=== PATIENT | female | born 2005 | race Two or more races ===

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

== ENCOUNTER 2024-05-11 03:47 | Inpatient (IN) | payer MEDICAID ==
[2024-05-11] VITALS (7 sets, daily range): BP systolic 98–121; BP diastolic 45–67; PULSE 57–101; RESP 16–26; TEMP 98–98.7; O2SAT 95–100
[~2024-05-11] VITALS: Ht 149.9 cm; Wt 62.4 kg
[2024-05-11 05:08] LABS: Basophils # (auto) 0.1 10 ^3/uL (0-0.2); Eosinophils # (auto) 0.1 10 ^3/uL (0-0.8); Hematocrit 37.8 % (36.0-46.0); Hemoglobin 12.3 g/dL (12.2-16.2); Lymphocytes # (auto) 1.5 10 ^3/uL (0.4-5.4); Mean Corpuscular Hgb Conc. 32.6 g/dL (32.0-36.0); Neutrophils # (auto) 12.9 10 ^3/uL (1.6-8.6); Nucleated Red Blood Cells % 0.1 %; White Blood Cell 15.2 10^3/uL (4.4-10.8)
[2024-05-11 05:10] LABS: Basophils % (auto) 0.6 % (0.0-2.0); Eosinophils % (auto) 0.5 % (0.0-7.0); Lymphocytes % (auto) 9.8 % (10.0-50.0); Mean Corpuscular Hemoglobin 25.2 pg (28.0-32.0); Mean Corpuscular Volume 77.2 fL (80.0-100.0); Monocytes # (auto) 0.7 10 ^3/uL (0-1.3); Monocytes % (auto) 4.3 % (0.0-12.0); Neutrophils % (auto) 84.8 % (37.0-80.0); Platelet Count (auto) 410 10^3/uL (140-450); Red Cell Distribution Width 15.5 % (11.8-14.3)
[2024-05-11 05:12] LABS: Urine Bacteria None Seen /hpf (None Seen)
[2024-05-11 05:21] LABS: Urine Blood 2+ /uL (Negative); Urine Clarity Clear (Clear); Urine Color Light-Yellow (Yellow); Urine Mucus FEW (None Seen); Urine Protein, UAD TRACE (Negative); Urine Specific Gravity 1.025 (1.001-1.035); Urine Urobilinogen Normal (Negative); Urine WBC 8 /hpf (0 - 5)
[2024-05-11 05:25] LABS: Alanine Aminotransferase 24 U/L (7-40); Albumin 5.1 g/dL (3.2-4.8); Alkaline Phosphatase 90 U/L (46-116); Anion Gap 8 (5-15); Aspartate Aminotransferase 17 U/L (13-40); BUN/Creatinine Ratio 18.8 (10.0-20.0); Blood Urea Nitrogen 13 mg/dL (9-23); Calcium 10.2 mg/dL (8.7-10.4); Carbon Dioxide 26 mmol/L (20-30); Chloride 104 mmol/L (98-107); Glucose 113 mg/dL (74-106); Potassium 3.8 mmol/L (3.5-5.1); Sodium 138 mmol/L (136-145)
[2024-05-11 05:26] LABS: Bilirubin, Total 0.3 mg/dL (0.2-1.0); Total Protein 8.5 g/dL (5.7-8.2)
[2024-05-11] MEDS: ONDANSETRON HCL 4 MG/2 ML VIAL IV ONE ×2 (06:13→06:15)
[2024-05-11] MEDS: SODIUM CHLORIDE 0.9% 1,000 ML IV ONE ×5 (06:14→09:30)
[2024-05-11] MEDS: MORPHINE SULFATE 4 MG/ML SYR/VIAL IV ONE ×2 (06:14)
[2024-05-11] MEDS ORDERED: metroNIDAZOLE 500MG/100ML 100 ML IV ONE (08:15)
[2024-05-11] MEDS: cefTRIAXone 1GM/50ML D5W 50 ML IV ONE (08:15)
[2024-05-11] MEDS ORDERED: IOHEXOL 300 MG/ML 100ML BOTTLE IJ ONE (08:28)
[2024-05-11] MEDS ORDERED: ONDANSETRON HCL 4 MG/2 ML VIAL IV PRN (09:30)
[2024-05-11] MEDS ORDERED: DOCUSATE SOD 100 MG CAP PO PRN (09:30)
[2024-05-11] MEDS: ENOXAPARIN SOD 40 MG/0.4 ML SYRINGE SC SCH (10:00)
[2024-05-11] MEDS: PIPERACILLIN-TAZOB 3.375GM 100 ML IV SCH (13:23)
[2024-05-11] MEDS: PANTOPRAZOLE 40 MG/10 ML VIAL INJ IV SCH (13:23)
[2024-05-11] MEDS: SODIUM CHLOR 0.9% PF (SALINE LOCK) 10ML VIAL/SYR IV SCH (13:28)
[2024-05-11] MEDS: ACETAMINOPHEN 325 MG TAB PO PRN (20:07)
[2024-05-12] VITALS (7 sets, daily range): BP systolic 95–127; BP diastolic 47–67; PULSE 62–87; RESP 16–20; TEMP 97.6–98.8; O2SAT 98–100
[2024-05-12 15:29] LABS: Basophils # (auto) 0.1 10 ^3/uL (0-0.2); Eosinophils # (auto) 0.3 10 ^3/uL (0-0.8); Hemoglobin 11.8 g/dL (12.2-16.2); Lymphocytes # (auto) 2.6 10 ^3/uL (0.4-5.4); Red Cell Distribution Width 15.4 % (11.8-14.3); White Blood Cell 7.2 10^3/uL (4.4-10.8)
[2024-05-12 15:31] LABS: Eosinophils % (auto) 4.7 % (0.0-7.0); Hematocrit 36.2 % (36.0-46.0); Mean Corpuscular Hemoglobin 25.3 pg (28.0-32.0); Mean Corpuscular Hgb Conc. 32.6 g/dL (32.0-36.0); Mean Corpuscular Volume 77.6 fL (80.0-100.0); Monocytes # (auto) 0.6 10 ^3/uL (0-1.3); Monocytes % (auto) 8.4 % (0.0-12.0); Neutrophils # (auto) 3.6 10 ^3/uL (1.6-8.6); Neutrophils % (auto) 49.9 % (37.0-80.0); Platelet Count (auto) 367 10^3/uL (140-450); Red Blood Cells 4.67 10^6/uL (4.0-5.20)
[2024-05-12 16:04] LABS: Lipase 38 U/L (12-53)
[2024-05-12 16:05] LABS: Amylase 99 U/L (30-118)
[2024-05-13 01:00] VITALS: BP 120/76; PULSE 63; RESP 16; TEMP 98.1; O2SAT 100
[2024-05-13 05:00] VITALS: BP 99/50; PULSE 84; RESP 18; TEMP 97.8; O2SAT 98
[2024-05-13 08:00] VITALS: PULSE 67; RESP 18; O2SAT 99
[2024-05-13 08:53] VITALS: BP 110/53; PULSE 66; RESP 16; TEMP 98; O2SAT 98
[2024-05-13] MEDS ORDERED: AMOX500T86 PO (11:45)
[2024-05-13] MEDS ORDERED: LEVO500T91 PO (12:34)
[2024-05-13 12:56] VITALS: BP 126/69; PULSE 68; RESP 20; TEMP 98.3
== END 2024-05-13 13:00 | disposition home or self-care (01) | DRG 720 ==
LOC: ER 03:47 → OVERFLOW 09:27 → EAST 11:34
PROVIDERS: ADMIT Internal Medicine; ATTEND Nurse Practitioner Acute Care
DX: A41.9 Sepsis, unspecified organism (principal); K76.0 Fatty (change of) liver, not elsewhere classified; N13.6 Pyonephrosis; E11.65 Type 2 diabetes mellitus with hyperglycemia; I10 Essential (primary) hypertension; K52.9 Noninfective gastroenteritis and colitis, unspecified; E66.3 Overweight; Z88.0 Allergy status to penicillin; Z83.3 Family history of diabetes mellitus; Z68.27 Body mass index [BMI] 27.0-27.9, adult; Z79.899 Other long term (current) drug therapy
CPT/HCPCS: 36415; 76705; 76830; 76856; 80053; 81001; 82150; 83036; 83605; 83690; 84702; 85025; 87040; 99291; G0378; J2405; J2470; J2543

== ENCOUNTER 2024-08-26 23:46 | Emergency (ER) | payer MEDICAID ==
[~2024-08-26] VITALS: Ht 149.9 cm; Wt 64.3 kg
[~2024-08-26 23:46] MED LIST: LEVO500T91 PO
[2024-08-27 00:10] VITALS: BP 111/70; PULSE 78; RESP 18; O2SAT 99
--- NOTE | 2024-08-27 00:21 | ED.PDOC ---
History of Present Illness HPI Comments 19-year-old female with no PMHx presents with a chief complaint of nausea, vomiting, while being currently . Patient states that she is currently 7 weeks . Patient mentions that she has not eaten anything and has been vomiting stomach bile. 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 No complaints of vaginal bleeding, cramping, or abdominal pain. No other symptoms or modifying factors present at this time. Chief Complaint: Nausea/Vomiting Time Seen by MD: 00:15 Reviewed Notes: Medications, Allergies Allergies: Coded Allergies: Amoxicillin (Verified Allergy, Unknown, 05/11/24) Home Meds Active Scripts Levofloxacin Hemihydrate (LEVAQUIN 500 MG) 500 Mg Tab, 1 TAB PO DAILY for 5 Days, #5 TAB Prov:MT ROBB NP 05/13/24 Information Source: Patient Mode of Arrival: Ambulatory Severity: Moderate Timing: Hours Duration: Since onset Prehospital treatment: None Past Medical History PAST MEDICAL HISTORY: Denies Surgical History: Denies all surgeries PROGRAMMING COORDINATOR History: No Pertinent PROGRAMMING COORDINATOR History Family History Family History: Family hx of DM Social History Smoker: Non-Smoker Alcohol: Denies ETOH Use Drugs: Marijuana Lives In: Home Constitutional: denies: chills, diaphoresis, fatigue, fever, malaise, sweats, weakness, others EENTM: denies: blurred vision, double vision, ear bleeding, ear discharge, ear drainage, ear pain, ear ringing, eye pain, eye redness, hearing loss, mouth pain, mouth swelling, nasal discharge, nose bleeding, nose congestion, nose pain, photophobia, tearing, throat pain, throat swelling, voice changes, others Respiratory: denies: cough, hemoptysis, orthopnea, SOB at rest, shortness of breath, SOB with excertion, stridor, wheezing, others Cardiovascular: denies: chest pain, dizzy spells, diaphoresis, Dyspnea on exertion, edema, irregular heart beat, left arm pain, lightheadedness, palpitations, PND, syncope, others Gastrointestinal: reports: nausea, vomiting; denies: abdomen distended, abdominal pain, blood streaked bowels, constipated, diarrhea, dysphagia, difficulty swallowing, hematemesis, melena, poor appetite, poor fluid intake, rectal bleeding, rectal pain, others Genitourinary: reports: ; denies: abnormal vagina bleeding, burning, dyspareunia, dysuria, flank pain, frequency, hematuria, incontinence, pain, vagina discharge, urgency, others Neurological: denies: dizziness, fainting, headache, left sided numbness, left sided weakness, numbness, paresthesia, pre-existing deficit, right sided numbness, right sided weakness, seizure, speech problems, tingling, tremors, weakness, others Musculoskeletal: denies: back pain, gout, joint pain, joint swelling, muscle pain, muscle stiffness, neck pain, others Integumetry: denies: bruises, change in color, change in hair/nails, dryness, laceration, lesions, lumps, rash, wounds, others Allergic/Immunocompromised: denies: Difficulty Healing, Frequent Infections, Hives, Itching, others Hematologic/Lymphatic: denies: anemia, blood clots, easy bleeding, easy bruising, swollen glands, others Endocrine: denies: excessive hunger, excessive sweating, excessive thirst, excessive urination, flushing, intolerance to cold, intolerance to heat, unexplained weight gain, unexplained weight loss, others Psychiatric: denies: anxiety, bipolar disorder, depression, hopeless, panic disorder, schizophrenia, sleepless, suicidal, others All Other Systems: Reviewed and Negative Physical Exam General Appearance: No Apparent Distress, Normal HEENT: Normal ENT Inspection, Pharynx Normal, TMs Normal Neck: Full Range of Motion, Non-Tender, Normal, Normal Inspection Respiratory: Chest Non-Tender, Lungs Clear, No Accessory Muscle Use, No Respiratory Distress, Normal Breath Sounds Cardiovascular: No Edema, No JVD, No Murmur, No Gallop, Normal Peripheral Pulses, Regular Rate/Rhythm Breast Exam: Deferred Gastrointestinal: No Organomegaly, Non Tender, No Pulsatile Mass, Normal Bowel Sounds, Soft, Other (DRY MUCUS MEMBRANES) Genitalia: Deferred Pelvic: Deferred Rectal: Deferred Extremities: No calf tenderness, Normal capillary refill, Normal inspection, Normal range of motion, Non-tender, No pedal edema Musculoskeletal : Apperance: Normal Neurologic: Alert, lotteries agent II-XII nml as Tested, No Motor Deficits, Normal Affect, Normal Mood, No Sensory Deficits Cerebellar Function: Normal Reflexes: Normal Skin: Dry, Normal Color, Warm Lymphatic: No Adenopathy Was a procedure done? Was a procedure done?: No Differential Dx Considerations may include: Viral gastroenteritis, hyperemesis X-Ray, Labs, Meds, VS Vital Signs Date Time Temp Pulse Resp B/P (MAP) Pulse Ox O2 Delivery O2 Flow Rate FiO2 08/27/24 00:10 98.7 78 18 111/70 (84) 99 Lab Test 08/27/24 01:00 Range/Units White Blood Count 12.6 H 4.4-10.8 10^3/uL Red Blood Count 4.71 4.0-5.20 10^6/uL Hemoglobin 12.1 L 12.2-16.2 g/dL Hematocrit 36.8 36.0-46.0 % Mean Corpuscular Volume 78.1 L 80.0-100.0 fL Mean Corpuscular Hemoglobin 25.7 L 28.0-32.0 pg Mean Corpuscular Hemoglobin Concent 32.9 32.0-36.0 g/dL Red Cell Distribution Width 18.3 H 11.8-14.3 % Platelet Count 390 140-450 10^3/uL Mean Platelet Volume 7.5 6.9-10.8 fL Neutrophils (%) (Auto) 60.4 37.0-80.0 % Lymphocytes (%) (Auto) 27.2 10.0-50.0 % Monocytes (%) (Auto) 9.2 0.0-12.0 % Eosinophils (%) (Auto) 2.5 0.0-7.0 % Basophils (%) (Auto) 0.7 0.0-2.0 % Neutrophils # (Auto) 7.6 1.6-8.6 10 ^3/uL Lymphocytes # (Auto) 3.4 0.4-5.4 10 ^3/uL Monocytes # (Auto) 1.2 0-1.3 10 ^3/uL Eosinophils # (Auto) 0.3 0-0.8 10 ^3/uL Basophils # (Auto) 0.1 0-0.2 10 ^3/uL Nucleated Red Blood Cells 0.1 % Sodium Level 137 136-145 mmol/L Potassium Level 3.5 3.5-5.1 mmol/L Chloride Level 100 98-107 mmol/L Carbon Dioxide Level 27 20-31 mmol/L Anion Gap 10 5-15 Blood Urea Nitrogen 10 9-23 mg/dL Creatinine 0.50 L 0.550-1.02 mg/dL Glomerular Filtration Rate Calc 138 >90 mL/min BUN/Creatinine Ratio 20.0 10.0-20.0 Serum Glucose 86 74-106 mg/dL Calcium Level 10.6 H 8.7-10.4 mg/dL Time of 1ST Reevaluation: 00:45 Reevaluation 1ST: Unchanged Patient Education/Counseling: Diagnosis, Treatment, Prognosis Family Education/Counseling: No Family Present Departure 1 Departure Time of Disposition: 02:46 (Patient likely with hyperemesis gravidarum. She is now tolerating p.o. and feeling better. We will discharge patient with outpatient follow up) Impression: Primary Impression: Hyperemesis gravidarum Disposition: 01 HOME / SELF CARE / HOMELESS Condition: Stable Additional Instructions: It is important to follow up with your regular doctor this week. Please stay well hydrated and well rested. Discharged With: Self Critical Care Note Critical Care Time?: No Stability Stability form required: No I personally scribed for ABE HILARIO MD ([email or web address]) on 08/27/24 at 00:21. Electronically submitted by Armaan Hernandez [email or web address]). ABE HILARIO MD Aug 27, 2024 00:21
[2024-08-27] MEDS ORDERED: SODIUM CHLORIDE 0.9% 1,000 ML IV ONE (00:30)
[2024-08-27] MEDS ORDERED: ONDANSETRON HCL 4 MG/2 ML VIAL IV ONE (00:30)
[2024-08-27 01:28] LABS: Basophils # (auto) 0.1 10 ^3/uL (0-0.2); Basophils % (auto) 0.7 % (0.0-2.0); Eosinophils # (auto) 0.3 10 ^3/uL (0-0.8); Eosinophils % (auto) 2.5 % (0.0-7.0); Hematocrit 36.8 % (36.0-46.0); Hemoglobin 12.1 g/dL (12.2-16.2); Lymphocytes # (auto) 3.4 10 ^3/uL (0.4-5.4); Lymphocytes % (auto) 27.2 % (10.0-50.0); Mean Corpuscular Hemoglobin 25.7 pg (28.0-32.0); Mean Corpuscular Hgb Conc. 32.9 g/dL (32.0-36.0); Mean Corpuscular Volume 78.1 fL (80.0-100.0); Monocytes # (auto) 1.2 10 ^3/uL (0-1.3); Monocytes % (auto) 9.2 % (0.0-12.0); Neutrophils # (auto) 7.6 10 ^3/uL (1.6-8.6); Neutrophils % (auto) 60.4 % (37.0-80.0); Nucleated Red Blood Cells % 0.1 %; Platelet Count (auto) 390 10^3/uL (140-450); Red Blood Cells 4.71 10^6/uL (4.0-5.20); Red Cell Distribution Width 18.3 % (11.8-14.3); White Blood Cell 12.6 10^3/uL (4.4-10.8)
[2024-08-27 01:38] LABS: Anion Gap 10 (5-15); Carbon Dioxide 27 mmol/L (20-31); Chloride 100 mmol/L (98-107); Potassium 3.5 mmol/L (3.5-5.1); Sodium 137 mmol/L (136-145)
[2024-08-27 01:44] LABS: Blood Urea Nitrogen 10 mg/dL (9-23); Glucose 86 mg/dL (74-106)
[2024-08-27 01:52] LABS: Calcium 10.6 mg/dL (8.7-10.4)
[2024-08-27 03:30] LABS: Urine Amorphous Crystal FEW /hpf (None Seen); Urine Bacteria FEW /hpf (None Seen); Urine Blood Negative /uL (Negative); Urine Clarity Clear (Clear); Urine Color Light-Yellow (Yellow); Urine Protein, UAD Negative (Negative); Urine Urobilinogen Normal (Negative); Urine WBC 3 /hpf (0 - 5); Urine pH 6.5 (5.0-9.0)
== END 2024-08-27 05:38 | disposition home or self-care (01) ==
LOC: ER 23:46
DX: O21.0 Mild hyperemesis gravidarum (principal); Z3A.01 Less than 8 weeks gestation of pregnancy; Z88.1 Allergy status to other antibiotic agents
CPT/HCPCS: 36415; 80048; 81001; 85025

== ENCOUNTER 2024-10-26 08:09 | Emergency (ER) | payer MEDICAID ==
[~2024-10-26] VITALS: Ht 149.9 cm; Wt 61.8 kg
[2024-10-26 08:43] LABS: Urine Bacteria FEW /hpf (None Seen); Urine Blood Negative /uL (Negative); Urine Clarity Clear (Clear); Urine Color Light-Yellow (Yellow); Urine Protein, UAD Negative (Negative); Urine Specific Gravity 1.007 (1.001-1.035); Urine Squamous Epithelial Cell FEW /hpf (<5); Urine Urobilinogen Normal (Negative); Urine WBC 1 /HPF (0-5)
[2024-10-26] MEDS: ONDANSETRON HCL 4 MG/2 ML VIAL IV ONE (08:45)
[2024-10-26] MEDS: SODIUM CHLORIDE 0.9% 1,000 ML IV ONE ×2 (08:58→10:13)
--- NOTE | 2024-10-26 09:16 | ED.PDOC ---
GI ASSESSMENT HPI Comments A 19 YEAR OLD FEMALE PRESENTS TO THE ED WITH COMPLAINT OF NAUSEA AND VOMITING DURING . PATIENT STATES SHE IS CURRENTLY 16 WEEKS AND HAS BEEN EXPERIENCING NAUSEA, VOMITING, AND LEFT-SIDED LOWER BACK PAIN THAT RADIATES TO HER PELVIC REGION FOR THE PAST 1 WEEK WITH WORSENING SYMPTOMS OVER THE LAST 1 DAY. PT HAS HX OF KIDNEY STONE IN THE PAST. PATIENT DENIES DYSURIA, VAGINAL SPOTTING/BLEEDING, HEMATURIA, VAGINAL DISCHARGE, FEVER, CHILLS, SHORTNESS OF BREATH, CHEST PAIN, HEADACHE, OR OTHER COMPLAINTS. NO OTHER SYMPTOMS OR MODIFYING FACTORS AT THIS TIME. PATIENT IS ALERT, ORIENTED X 4, AND HAS STEADY GAIT. Chief Complaint: Nausea/Vomiting Time Seen by MD: 08:15 Primary Care Provider: UNKNOWN Reviewed Notes: Nurses Notes, Medications, Allergies Allergies: Coded Allergies: Amoxicillin (Verified Allergy, Unknown, 05/11/24) Home Meds Active Scripts Acetaminophen (Tylenol Extra Strength Fo) 500 Mg Tab, 1000 MG PO BID, #30 TAB Prov:PATRICIO TAMAYO 10/26/24 Ondansetron Odt 4MG Tab (ZOFRAN PO) 4 Mg Tb, 4 MG PO BID, #20 TAB ODT TAB-DISSOLVE IN MOUTH, THEN SWALLOW Prov:PATRICIO TAMAYO 10/26/24 Levofloxacin Hemihydrate (LEVAQUIN 500 MG) 500 Mg Tab, 1 TAB PO DAILY for 5 Days, #5 TAB Prov:MT ROBB NP 05/13/24 Information Source: Patient Mode of Arrival: Ambulatory Timing: Days Duration: Since onset, Days Prehospital treatment: None Quality: Aching, Cramping Vomitus: Food Particles Stool: Normal Severity: Moderate Recent: None Recent Hx of: Current Pain Location: LLQ, Suprapubic Modifying Factors: Nothing Associated sign and symptoms: Nausea, Vomiting, Abdominal Pain Past Medical History PAST MEDICAL HISTORY: Kidney Stones Surgical History: Denies all surgeries DESIGN TECHNOLOGY PROFESSOR History: No Pertinent DESIGN TECHNOLOGY PROFESSOR History Family History Family History: Reviewed,noncontributory to illness, Family hx of DM Social History Smoker: Non-Smoker Alcohol: Denies ETOH Use Drugs: Marijuana Lives In: Home Constitutional: denies: chills, diaphoresis, fatigue, fever, malaise, sweats, weakness, others EENTM: denies: blurred vision, double vision, ear bleeding, ear discharge, ear drainage, ear pain, ear ringing, eye pain, eye redness, hearing loss, mouth pain, mouth swelling, nasal discharge, nose bleeding, nose congestion, nose pain, photophobia, tearing, throat pain, throat swelling, voice changes, others Respiratory: denies: cough, hemoptysis, orthopnea, SOB at rest, shortness of breath, SOB with excertion, stridor, wheezing, others Cardiovascular: denies: chest pain, dizzy spells, diaphoresis, Dyspnea on exertion, edema, irregular heart beat, left arm pain, lightheadedness, palpitations, PND, syncope, others Gastrointestinal: reports: nausea, vomiting; denies: abdomen distended, abdominal pain, blood streaked bowels, constipated, diarrhea, dysphagia, difficulty swallowing, hematemesis, melena, poor appetite, poor fluid intake, rectal bleeding, rectal pain, others Genitourinary: reports: ; denies: abnormal vagina bleeding, burning, dyspareunia, dysuria, flank pain, frequency, hematuria, incontinence, pain, vagina discharge, urgency, others Neurological: denies: dizziness, fainting, headache, left sided numbness, left sided weakness, numbness, paresthesia, pre-existing deficit, right sided numbness, right sided weakness, seizure, speech problems, tingling, tremors, weakness, others Musculoskeletal: reports: others (LEFT SIDED LOWER BACK PAIN THAT RADIATES TO PELVIC REGION); denies: back pain, gout, joint pain, joint swelling, muscle pain, muscle stiffness, neck pain Integumetry: denies: bruises, change in color, change in hair/nails, dryness, laceration, lesions, lumps, rash, wounds, others Allergic/Immunocompromised: denies: Difficulty Healing, Frequent Infections, Hives, Itching, others Hematologic/Lymphatic: denies: anemia, blood clots, easy bleeding, easy bruising, swollen glands, others Endocrine: denies: excessive hunger, excessive sweating, excessive thirst, excessive urination, flushing, intolerance to cold, intolerance to heat, unexplained weight gain, unexplained weight loss, others Psychiatric: denies: anxiety, bipolar disorder, depression, hopeless, panic di sorder, schizophrenia, sleepless, suicidal, others All Other Systems: Reviewed and Negative Physical Exam General Appearance: No Apparent Distress, Normal HEENT: Normal ENT Inspection, PERRL/EOMI, Pharynx Normal, TMs Normal Neck: Full Range of Motion, Non-Tender, Normal, Normal Inspection Respiratory: Chest Non-Tender, Lungs Clear, No Accessory Muscle Use, No Respiratory Distress, Normal Breath Sounds Cardiovascular: No Edema, No JVD, No Murmur, No Gallop, Normal Peripheral Pulses, Regular Rate/Rhythm Breast Exam: Deferred Gastrointestinal: LLQ, No Organomegaly, No Pulsatile Mass, Normal Bowel Sounds, Soft, Tenderness (TENDERNESS ON LEFT LOWER ABD, NO GUARDING AND REBOUND TENDERNESS. ) Genitalia: Deferred Pelvic: Normal External Exam, Tender Adnexa (TENDERNESS ON LEFT PELVIC, NO ARDING AND REBOUND TENDERNESS. ), Tender Uterus Rectal: Deferred Extremities: No calf tenderness, Normal capillary refill, Normal inspection, Normal range of motion, Non-tender, No pedal edema Musculoskeletal : Apperance: Normal Neurologic: Alert, rail detector car operator II-XII nml as Tested, No Motor Deficits, Normal Affect, Normal Mood, No Sensory Deficits Cerebellar Function: Normal Reflexes: Normal Skin: Dry, Normal Color, Warm Peripheral Pulses: 2+ carotid (R), 2+ carotid (L) Lymphatic: No Adenopathy Was a procedure done? Was a procedure done?: No GI differential Dx Differential Diagnosis: Gastritis/PUD, Gastroenteritis, UTI, Dehydration, Electrolyte Imbalance, , Viral, Kidney Stone X-Ray, Labs, Meds, VS Vital Signs Date Time Temp Pulse Resp B/P (MAP) Pulse Ox O2 Delivery O2 Flow Rate FiO2 10/26/24 11:19 98 18 117/64 (81) 100 10/26/24 10:50 97 22 97 Room Air 10/26/24 10:50 98.0 89 22 111/78 (89) 98 98.0 10/26/24 10:46 89 22 111/73 10/26/24 08:26 98.0 92 22 115/62 (79) 97 Lab Test 10/26/24 09:10 10/26/24 08:33 Range/Units White Blood Count 16.6 H 4.4-10.8 10^3/uL Red Blood Count 4.06 4.0-5.20 10^6/uL Hemoglobin 11.1 L 12.2-16.2 g/dL Hematocrit 32.3 L 36.0-46.0 % Mean Corpuscular Volume 79.7 L 80.0-100.0 fL Mean Corpuscular Hemoglobin 27.3 L 28.0-32.0 pg Mean Corpuscular Hemoglobin Concent 34.2 32.0-36.0 g/dL Red Cell Distribution Width 16.2 H 11.8-14.3 % Platelet Count 417 140-450 10^3/uL Mean Platelet Volume 7.3 6.9-10.8 fL Neutrophils (%) (Auto) 83.8 H 37.0-80.0 % Lymphocytes (%) (Auto) 8.5 L 10.0-50.0 % Monocytes (%) (Auto) 6.9 0.0-12.0 % Eosinophils (%) (Auto) 0.4 0.0-7.0 % Basophils (%) (Auto) 0.4 0.0-2.0 % Neutrophils # (Auto) 13.9 H 1.6-8.6 10 ^3/uL Lymphocytes # (Auto) 1.4 0.4-5.4 10 ^3/uL Monocytes # (Auto) 1.1 0-1.3 10 ^3/uL Eosinophils # (Auto) 0.1 0-0.8 10 ^3/uL Basophils # (Auto) 0.1 0-0.2 10 ^3/uL Nucleated Red Blood Cells 0.0 % Sodium Level 133 L 136-145 mmol/L Potassium Level 3.8 3.5-5.1 mmol/L Chloride Level 101 98-107 mmol/L Carbon Dioxide Level 25 20-31 mmol/L Anion Gap 7 5-15 Blood Urea Nitrogen 8 L 9-23 mg/dL Creatinine 1.03 H 0.550-1.02 mg/dL Glomerular Filtration Rate Calc 80 >90 mL/min BUN/Creatinine Ratio 7.8 L 10.0-20.0 Serum Glucose 105 74-106 mg/dL Calcium Level 9.6 8.7-10.4 mg/dL Urine Color Light-yellow Yellow Urine Clarity Clear Clear Urine pH 6.0 5.0-9.0 Urine Specific [place] 1.007 1.001-1.035 Urine Protein Negative Negative Urine Ketones 2+ H Negative Urine Blood Negative Negative /uL Urine Nitrite Negative Negative Urine Bilirubin Negative Negative Urine Urobilinogen Normal Negative mg/dL Urine Leukocyte Esterase Negative Negative /uL Urine RBC <1 0 - 4 /hpf Urine Microscopic WBC 1 0-5 /HPF Urine Squamous Epithelial Cells Few <5 /hpf Urine Bacteria Few H None Seen /hpf Urine Glucose Normal Normal mg/dL Urine Test Positive Negative Current Medications Medications (Trade) Dose Ordered Sig/Andrey Route Start Time Stop Time Status Last Admin Sodium Chloride 1,000 ml @ 1,000 mls/hr Q1H ONCE IV 10/26/24 08:45 10/26/24 09:44 DC 10/26/24 08:58 Sodium Chloride 1,000 ml @ 1,000 mls/hr Q1H ONCE IV 10/26/24 09:45 10/26/24 10:44 DC 10/26/24 10:13 Acetaminophen (Tylenol Tablet) 1,000 mg ONCE ONCE PO 10/26/24 10:30 10/26/24 10:31 DC 10/26/24 10:22 Procedure: US OB ULTRASOUND COMP GTR 14 WKS 10/26/2024 09:43 AM HISTORY: LEFT PELVIC PAIN, 16 WEEKS COMPARISON: None TECHNIQUE: Sonogram of the gravid uterus was performed. FINDINGS: Single living intrauterine gestation. Presentation: Breech Placenta: Posterior heart rate: 137 bpm Amniotic fluid: Adequate Maternal cervix: Closed, 3.7 cm in length in the transabdominal study The following measurements were obtained: Biparietal diameter: 3.5 cm corresponding to 16 weeks and 6 days Head Circumference: 12.9 cm corresponding to 16 weeks and 4 days Abdominal Circumference: 10.2 cm corresponding to 16 weeks and 1 day Femoral Length: 0.2 cm corresponding to 16 weeks and 4 days Average Ultrasound Age: 16 weeks and 4 days Estimated Date of Delivery by US: 04/08/2025 Estimated Weight: 156 g IMPRESSION: 1. Single currently living intrauterine gestation, as described above. No significant abnormalities are apparent at this time. ATED BY: MIESHA VAUGHN MD DICTATED DATE/TIME: 10/26/24 103 SIGNED BY: MIESHA VAUGHN MD SIGNED DATE/TIME: 10/26/24 103 CC: INDICATION: LEFT LOWER BACK PAIN TO LEFT LOWER ABD TECHNIQUE: Multiple real-time sonographic images of the kidneys and urinary bladder were obtained. COMPARISON: None FINDINGS: The right kidney measures 11.2 cm in length. The right renal echotexture, contour and cortical thickness are within normal limits. Mild hydronephrosis. The left kidney measures 12.7 cm in length. The left renal echotexture, contour, and cortical thickness are within normal limits. Mild hydronephrosis. No echogenic intraluminal masses are seen in the bladder. No urinary bladder wall abnormality. Bilateral ureteral jets are not visualized Prevoid residual measures 7.0 cc. IMPRESSION: 1. Mild bilateral hydronephrosis. ATED BY: DARLIN CLOUD MD DICTATED DATE/TIME: 10/26/24 1014 SIGNED BY: DARLIN CLOUD MD SIGNED DATE/TIME: 10/26/24 1014 CC: X-Ray, Labs, Meds, VS Comment EXTERNAL MEDICAL RECORDS REVIEWED: [NONE] INDEPENDENT HISTORIANS: [NONE] SOCIAL DETERMINANTS OF HEALTH: [NONE] LABS ORDERED: CBC, BMP, UA REVIEWED AND INTERPRETED RESULTS: NORMAL IMAGING ORDERED: US OB >14 WKS, US RENAL TREATMENTS ORDERED: NS 2 L IV, ZOFRAN 4 MG IV, MORPHINE 2 MG IV, TYLENOL 1 G P.O. AFTER TREATMENT, PT FEELS MUCH BETTER AND THE PAIN WITH N/V DECREASED. PROCEDURES PERFORMED: NONE CRITICAL CARE TIME: NONE I HAVE DISCUSSED THE PATIENT WITH THE ATTENDING PHYSICIAN DR. BURKETT AND HE AGREES WITH THE PATIENT'S PLAN OF CARE AND DISPOSITION. BASED ON HISTORY OF PRESENT ILLNESS, AND PHYSICAL EXAM, PATIENT WILL BE DISCHARGED HOME. SHARED DECISION MAKING: PATIENT INSTRUCTED TO FOLLOW UP WITH PRIMARY CARE PROVIDER IN 1-2 DAYS FOR RE-EVALUATION OF SYMPTOMS. PATIENT VERBALIZES UNDERSTANDING TO RETURN TO ED FOR NEW OR WORSENING SYMPTOMS OR IF FOLLOW UP WITH PCP CANNOT BE OBTAINED. PATIENT FEELS COMFORTABLE GOING HOME AT THIS TIME. ALL QUESTIONS ADDRESSED AT TIME OF DISCHARGE. Images Reviewed?: Images reviewed and evaluated by me Time of 1ST Reevaluation: 11:18 Reevaluation 1ST: Improved Consultation: Urology (1045: I HAVE CONSULTED THE ON-CALL UROLOGIST JULIA NGUYEN REGARDING THIS PATIENT'S CASE AND ULTRASOUND RESULTS AND SHE HAS SAID THE PATIENT IS OKAY TO BE DISCHARGED HOME AND CAN FOLLOW UP WITH HER PCP FOR FURTHER EVALUATION OF HER MILD HYDRONEPHROSIS.) Patient Education/Counseling: Diagnosis, Treatment, Need For Follow Up Family Education/Counseling: Diagnosis, Treatment, Need For Follow Up Medical Screening: No EMC Exist At This Time Departure 1 Departure Time of Disposition: 11:30 Impression: Primary Impression: Hyperemesis gravidarum Additional Impressions: Second trimester History of kidney stones Disposition: HOME / SELF CARE / HOMELESS Condition: Stable Additional Instructions: FOLLOW-UP WITH PCP AND PHYSICAL INSTRUCTOR IN 1 TO 2 DAYS. TAKE MEDICATIONS PRESCRIBED. RETURN TO ED FOR ANY NEW OR WORSENING SYMPTOMS. e-Prescriptions Acetaminophen (Tylenol Extra Strength Fo) 500 Mg Tab 1000 MG PO BID, #30 TAB Prov: PATRICIO TAMAYO 10/26/24 Ondansetron Odt 4MG Tab (ZOFRAN PO) 4 Mg Tb 4 MG PO BID, #20 TAB ODT TAB-DISSOLVE IN MOUTH, THEN SWALLOW Prov: PATRICIO TAMAYO 10/26/24 Discharged With: Self Critical Care Note Critical Care Time?: No Stability Stability form required: No I personally scribed for PATRICIO TAMAYO ([email or web address]) on 10/26/24 at 09:16. Electronically submitted by Johnnie Perez ([email or web address]). I personally scribed for PATRICIO TAMAYO ([email or web address]) on 10/26/24 at 10:47. Electronically submitted by Johnnie Perez ([email or web address]). I personally scribed for PATRICIO TAMAYO ([email or web address]) on 10/26/24 at 11:12. Electronically submitted by Johnnie Perez ([email or web address]). PATRICIO TAMAYO Oct 26, 2024 09:16
[2024-10-26 09:25] LABS: Basophils # (auto) 0.1 10 ^3/uL (0-0.2); Basophils % (auto) 0.4 % (0.0-2.0); Eosinophils # (auto) 0.1 10 ^3/uL (0-0.8); Eosinophils % (auto) 0.4 % (0.0-7.0); Hematocrit 32.3 % (36.0-46.0); Hemoglobin 11.1 g/dL (12.2-16.2); Lymphocytes # (auto) 1.4 10 ^3/uL (0.4-5.4); Lymphocytes % (auto) 8.5 % (10.0-50.0); Mean Corpuscular Hemoglobin 27.3 pg (28.0-32.0); Mean Corpuscular Hgb Conc. 34.2 g/dL (32.0-36.0); Mean Corpuscular Volume 79.7 fL (80.0-100.0); Monocytes # (auto) 1.1 10 ^3/uL (0-1.3); Monocytes % (auto) 6.9 % (0.0-12.0); Neutrophils # (auto) 13.9 10 ^3/uL (1.6-8.6); Neutrophils % (auto) 83.8 % (37.0-80.0); Platelet Count (auto) 417 10^3/uL (140-450); Red Blood Cells 4.06 10^6/uL (4.0-5.20); Red Cell Distribution Width 16.2 % (11.8-14.3); White Blood Cell 16.6 10^3/uL (4.4-10.8)
[2024-10-26 09:33] LABS: Chloride 101 mmol/L (98-107); Potassium 3.8 mmol/L (3.5-5.1)
[2024-10-26 09:34] LABS: Anion Gap 7 (5-15); Carbon Dioxide 25 mmol/L (20-31)
[2024-10-26 09:35] LABS: Calcium 9.6 mg/dL (8.7-10.4); Sodium 133 mmol/L (136-145)
[2024-10-26 09:39] LABS: BUN/Creatinine Ratio 7.8 (10.0-20.0); Glucose 105 mg/dL (74-106)
[2024-10-26 09:46] LABS: Blood Urea Nitrogen 8 mg/dL (9-23)
--- NOTE | 2024-10-26 10:16 | DVH ---
INDICATION: LEFT LOWER BACK PAIN TO LEFT LOWER ABD TECHNIQUE: Multiple real-time sonographic images of the kidneys and urinary bladder were obtained. COMPARISON: None FINDINGS: The right kidney measures 11.2 cm in length. The right renal echotexture, contour and cortical thick ness are within normal limits. Mild hydronephrosis. The left kidney measures 12.7 cm in length. The left renal echotexture, contour, and cortical thickne ss are within normal limits. Mild hydronephrosis. No echogenic intraluminal masses are seen in the bladder. No urinary bladder wall abnormality. Bilat eral ureteral jets are not visualized Prevoid residual measures 7.0 cc. IMPRESSION: 1. Mild bilateral hydronephrosis.
[2024-10-26] MEDS: ACETAMINOPHEN 325 MG TAB PO ONE (10:22)
--- NOTE | 2024-10-26 10:37 | DVH ---
Procedure: US OB ULTRASOUND COMP GTR 14 WKS 10/26/2024 09:43 AM HISTORY: LEFT PELVIC PAIN, 16 WEEKS COMPARISON: None TECHNIQUE: Sonogram of the gravid uterus was performed. FINDINGS: Single living intrauterine gestation. Presentation: Breech Placenta: Posterior heart rate: 137 bpm Amniotic fluid: Adequate Maternal cervix: Closed, 3.7 cm in length in the transabdominal study The following measurements were obtained: Biparietal diameter: 3.5 cm corresponding to 16 weeks and 6 days Head Circumference: 12.9 cm corresponding to 16 weeks and 4 days Abdominal Circumference: 10.2 cm corresponding to 16 weeks and 1 day Femoral Length: 0.2 cm corresponding to 16 weeks and 4 days Average Ultrasound Age: 16 weeks and 4 days Estimated Date of Delivery by US: 04/08/2025 Estimated Weight: 156 g IMPRESSION: 1. Single currently living intrauterine gestation, as described above. No significant abnormalities a re apparent at this time.
[2024-10-26] MEDS: MORPHINE SULFATE INJ 2 MG/ml SYRG IV ONE (10:46)
[2024-10-26 10:50] VITALS: TEMP 98
[2024-10-26] MEDS ORDERED: ZOFR4T PO (11:13)
[2024-10-26] MEDS ORDERED: ACET-1304 PO (11:13)
[2024-10-26 11:19] VITALS: BP 117/64; PULSE 98; RESP 18; O2SAT 100
== END 2024-10-26 11:20 | disposition home or self-care (01) ==
LOC: ER 08:09
DX: O21.0 Mild hyperemesis gravidarum (principal); O26.892 Other specified pregnancy related conditions, second trimester; M54.50 Low back pain, unspecified; F15.90 Other stimulant use, unspecified, uncomplicated; Z3A.16 16 weeks gestation of pregnancy; Z87.442 Personal history of urinary calculi; Z88.1 Allergy status to other antibiotic agents; Z79.899 Other long term (current) drug therapy
CPT/HCPCS: 36415; 76775; 76805; 80048; 81001; 81025; 85025; 96360; 96361; 99284; J2270; J2405; J7030

== ENCOUNTER 2024-10-26 18:13 | Emergency (ER) | payer MEDICAID ==
[~2024-10-26] VITALS: Ht 149.9 cm; Wt 62.6 kg
[~2024-10-26 18:13] MED LIST changes: +ACET-1304 PO; +ZOFR4T PO
--- NOTE | 2024-10-26 18:38 | ED.PDOC ---
General HPI Comments This patient is a 19-year-old female who returns to the ED today for evaluation of bilateral flank pain concerns radiating into her abdomen. Patient states she is 16 weeks and was seen earlier today for complaints of flank pain with nausea over the past two days. Imaging studies of the time revealed a bilateral mild hydronephrosis. Patient returns stating that the pain has come back with a vengeance. Patient denies any vomiting but states nausea. Vital signs were stable on arrival. Chief Complaint: Abdominal Pain Time Seen by MD: 18:14 Primary Care Provider: YOLANDA Reviewed notes: Nurses Notes Allergies: Coded Allergies: Amoxicillin (Verified Allergy, Unknown, 05/11/24) Home Meds Active Scripts Acetaminophen (Tylenol Extra Strength Fo) 500 Mg Tab, 1000 MG PO BID, #30 TAB Prov:PATRICIO TAMAYO 10/26/24 Ondansetron Odt 4MG Tab (ZOFRAN PO) 4 Mg Tb, 4 MG PO BID, #20 TAB ODT TAB-DISSOLVE IN MOUTH, THEN SWALLOW Prov:PATRICIO TAMAYO 10/26/24 Levofloxacin Hemihydrate (LEVAQUIN 500 MG) 500 Mg Tab, 1 TAB PO DAILY for 5 Da ys, #5 TAB Prov:MT ROBB NP 05/13/24 Information Source: Patient, Spouse Mode of Arrival: Ambulatory Severity: Moderate Timing: Days Duration: Since onset Prehospital treatment: Pain Meds Onset: Spontaneous Symptoms: None History of: Other (Hyperemesis gravidarum, kidney stones) Location: Abdomen, (R) Flank, (L)Flank associated signs and symptoms: Abdominal Pain, Nausea, Flank Pain Past Medical History PAST MEDICAL HISTORY: Kidney Stones Past Medical History (Other): Patient states she is currently 16 weeks . Surgical History: Denies all surgeries BUCKLE [employer]TON MAKER History: No Pertinent BU[employer]LE [employer] BUTTON MAKER History Family History Family History: Reviewed,noncontributory to illness, Family hx of DM Social History Smoker: Non-Smoker Alcohol: Denies ETOH Use Drugs: Marijuana Lives In: Home Constitutional: denies: chills, diaphoresis, fatigue, fever, malaise, sweats, weakness, others EENTM: denies: blurred vision, double vision, ear bleeding, ear discharge, ear drainage, ear pain, ear ringing, eye pain, eye redness, hearing loss, mouth pain, mouth swelling, nasal discharge, nose bleeding, nose congestion, nose pain, photophobia, tearing, throat pain, throat swelling, voice changes, others Respiratory: denies: cough, hemoptysis, orthopnea, SOB at rest, shortness of breath, SOB with excertion, stridor, wheezing, others Cardiovascular: denies: chest pain, dizzy spells, diaphoresis, Dyspnea on exertion, edema, irregular heart beat, left arm pain, lightheadedness, palpitations, PND, syncope, others Gastrointestinal: reports: abdominal pain, nausea; denies: abdomen distended, blood streaked bowels, constipated, diarrhea, dysphagia, difficulty swallowing, hematemesis, melena, poor appetite, poor fluid intake, rectal bleeding, rectal pain, vomiting, others Genitourinary: reports: flank pain; denies: abnormal vagina bleeding, burning, dyspareunia, dysuria, frequency, hematuria, incontinence, pain, , vagina discharge, urgency, others Neurological: denies: dizziness, fainting, headache, left sided numbness, left sided weakness, numbness, paresthesia, pre-existing deficit, right sided numbness, right sided weakness, seizure, speech problems, tingling, tremors, weakness, others Musculoskeletal: denies: back pain, gout, joint pain, joint swelling, muscle pain, muscle stiffness, neck pain, others Integumetry: denies: bruises, change in color, change in hair/nails, dryness, laceration, lesions, lumps, rash, wounds, others Allergic/Immunocompromised: denies: Difficulty Healing, Frequent Infections, Hives, Itching, others Hematologic/Lymphatic: denies: anemia, blood clots, easy bleeding, easy bruising, swollen glands, others Endocrine: denies: excessive hunger, excessive sweating, excessive thirst, excessive urination, flushing, intolerance to cold, intolerance to heat, unexplained weight gain, unexplained weight loss, others Psychiatric: denies: anxiety, bipolar disorder, depression, hopeless, panic disorder, schizophrenia, sleepless, suicidal, others Physical Exam General Appearance: Moderate Distress (Due to flank and belly pain concerns.), Normal HEENT: Normal ENT Inspection, Pharynx Normal, TMs Normal Neck: Full Range of Motion, Non-Tender, Normal, Normal Inspection Respiratory: Chest Non-Tender, Lungs Clear, No Accessory Muscle Use, No Respiratory Distress, Normal Breath Sounds Cardiovascular: No Edema, No JVD, No Murmur, No Gallop, Normal Peripheral Pulses, Regular Rate/Rhythm Breast Exam: Deferred Gastrointestinal: Other (Bilateral CVA tenderness radiating towards the belly bilaterally. appreciated. No signs of trauma.) Genitalia: Deferred Pelvic: Deferred Rectal: Deferred Extremities: No calf tenderness, Normal capillary refill, Normal inspection, Normal range of motion, Non-tender, No pedal edema Neurologic: Alert, No Motor Deficits, Normal Affect, Normal Mood, No Sensory Deficits Cerebellar Function: Normal Reflexes: Normal Skin: Dry, Normal Color, Warm Lymphatic: No Adenopathy Was a procedure done? Was a procedure done?: No Differential Diagnosis Kidney stone (Female): Other (Kidney stone, hydronephrosis) X-Ray, Labs, Meds, VS Vital Signs Date Time Temp Pulse Resp B/P (MAP) Pulse Ox O2 Delivery O2 Flow Rate FiO2 10/26/24 18:25 97.0 94 16 113/63 (80) 99 X-Ray, Labs, Meds, VS Comment Patient returns to ED due to pain control concerns. Patient will be transferred to [facility] for inpatient pain control as well as nephrology and OB evaluation. Spoke with Dr. Monteiro the [facility] transfer. Advised him of patient presentation as well as laboratories and imaging studies from this morning. He agreed to accept the patient is a transfer. Authorization number [id number]. 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, Other (Nephrology) Patient Education/Counseling: Diagnosis, Treatment Family Education/Counseling: Diagnosis, Treatment Departure 1 Departure Time of Disposition: 18:37 Impression: Primary Impression: Hydronephrosis Additional Impression: Hyperemesis gravidarum Disposition: 02 SHORT TERM HOSPITAL Condition: Stable Discharged With: Self, Spouse Critical Care Note Critical Care Time?: No Stability Stability form required: No Heart Score Heart Score: Heart Score Response (Comments) Value History N/A 0 EKG N/A 0 Age N/A 0 Risk Factors N/A 0 Troponin N/A 0 Total 0 GENNY VALENTINO PAC Oct 26, 2024 18:38
[2024-10-26 19:50] VITALS: PULSE 110; RESP 18; O2SAT 98
[2024-10-26] MEDS: KETOROLAC TROMETH 60MG/2ML VIAL IM ONE (20:07)
[2024-10-26] MEDS: ONDANSETRON ODT 4 MG TAB PO ONE (20:08)
[2024-10-26] MEDS: MORPHINE SULFATE INJ 2 MG/ml SYRG IV ONE (20:08)
[2024-10-26 21:30] VITALS: BP 105/59; PULSE 95; RESP 12; TEMP 98.2; O2SAT 97
== END 2024-10-26 18:39 | disposition short-term general hospital (02) ==
LOC: ER 18:13
DX: O99.891 Other specified diseases and conditions complicating pregnancy (principal); O21.0 Mild hyperemesis gravidarum; N13.30 Unspecified hydronephrosis; Z3A.16 16 weeks gestation of pregnancy; Z87.442 Personal history of urinary calculi; Z88.0 Allergy status to penicillin
CPT/HCPCS: 96372; 96374; 99285; J1885; J2270; Q0162

== ENCOUNTER 2024-11-26 20:20 | Emergency (ER) | payer MEDICAID ==
[~2024-11-26] VITALS: Ht 149.9 cm; Wt 66.0 kg
[2024-11-26 20:31] VITALS: BP 111/77; PULSE 140; RESP 16; O2SAT 98
--- NOTE | 2024-11-26 20:37 | ED.PDOC ---
History of Present Illness HPI Comments History taken from EMS. 19-year-old female who presents to the emergency department via EMS. Patient is 20 weeks , has current nephrostomy. Home health aide came to check nephrostomy today noticed that patient was tachycardic with foul-smelling urine. On interview with the patient she is refusing to answer any questions stating, she does not want to be here and wants to leave immediately and go to [place]. Discussed with patient that she likely has a severe infection, possibly sepsis which may affect her . We are able to start treatment for her here and transfer her to [place] in order not to delay care. She is declining any further treatment, states her in his here and she would like to leave immediately. Time Seen by MD: 20:22 Primary Care Provider: YOLANDA Allergies: Coded Allergies: Amoxicillin (Verified Allergy, Unknown, 05/11/24) Home Meds Active Scripts Acetaminophen (Tylenol Extra Strength Fo) 500 Mg Tab, 1000 MG PO BID, #30 TAB Prov:PATRICIO TAMAYO 10/26/24 Ondansetron Odt 4MG Tab (ZOFRAN PO) 4 Mg Tb, 4 MG PO BID, #20 TAB ODT TAB-DISSOLVE IN MOUTH, THEN SWALLOW Prov:PATRICIO TAMAYO 10/26/24 Levofloxacin Hemihydrate (LEVAQUIN 500 MG) 500 Mg Tab, 1 TAB PO DAILY for 5 Days, #5 TAB Prov:MT ROBB NP 05/13/24 Physical Exam General: Awake, alert and oriented. No acute distress. HEENT: The head is normocephalic and atraumatic. Conjunctivae are clear without exudates or hemorrhage. Sclera is non-icteric. Neck: Normal range of motion. No JVD. Cardiac: Tachycardia (rate 150) Respiratory: No signs of respiratory distress. No Stridor. Neurological: The patient is awake, alert and oriented to person, place, and time with normal speech. Speech is clear. There is no facial asymmetry. Psychiatric: Appropriate mood and affect. Good judgement and insight. Past Medical History PAST MEDICAL HISTORY: Kidney Stones Surgical History: Denies all surgeries CHEESEMAKING LABORER History: No Pertinent CHEESEMAKING LABORER History Family History Family History: Reviewed,noncontributory to illness, Family hx of DM Social History Smoker: Non-Smoker Alcohol: Denies ETOH Use Drugs: Marijuana Lives In: Home Was a procedure done? Was a procedure done?: No Differential Dx Considerations may include: Sepsis, hypovolemia, urinary tract infection, cardiac arrhythmia, other Time of 1ST Reevaluation: 20:35 Reevaluation 1ST: Unchanged Patient Education/Counseling: Other Family Education/Counseling: No Family Present Departure 1 Departure Time of Disposition: 20:33 Impression: Primary Impression: Left against medical advice Additional Impression: Tachycardia Disposition: 07 LEFT AGAINST MEDICAL ADVICE Condition: Unstable Comments Despite our efforts, patient has decided to leave against medical advice. The patient has a normal mental status and full decisional capacity. Patient has been informed of the benefits of staying such as further diagnosis and treatment of possible serious etiology of the symptoms, and the risks of leaving such as , chronic pain, permanent disability or other serious adverse events which might be attributed to leaving. The patient displays clear understanding of these benefits and risks and chooses to leave. The patient is been informed also that they may return here at any time if they change their mind or need to further concerns or questions has been referred to their local medical physician for follow up [place]. Critical Care Note Critical Care Time?: No Stability Stability form required: No RAYO NAVARRO MD Nov 26, 2024 20:37
== END 2024-11-26 23:36 | disposition left against medical advice (07) ==
LOC: ER 20:20 → EDBD 20:20 → ER 23:36
DX: O26.892 Other specified pregnancy related conditions, second trimester (principal); R00.0 Tachycardia, unspecified; Z3A.20 20 weeks gestation of pregnancy; Z88.0 Allergy status to penicillin

== ENCOUNTER 2025-03-28 20:06 | Observation (INO) | payer MEDICAID ==
[~2025-03-28] VITALS: Ht 149.9 cm; Wt 76.7 kg
--- NOTE | 2025-03-28 21:26 | DVHDS2 ---
Physician Discharge Progress N Final Diagnosis: 38w0d IUP with reactive NST. BPP 04/25 Operations or Procedures: Operations or Procedures S: 19 yo with IUP at 38w0d presents to place for decreased movement. She reports less movement throughout the day. The last time movement was normal was around 8am. Feeling occasional UCs that are not painful, but just feel like tightening. Denies leakage of fluid, vaginal bleeding, JAIMES, vision changes or epigastric pain O: A&O x3 NAD. Vital Signs: WNL BP: 109/67 HR: 91 T: 97.8 Respiration: unlabored Heart and lung sounds normal. Abdomen: Gravid, non-tender to palpation Extremities: No edema BPP 8/8 NST reactive. Baseline: 130 Variability: Moderate Accelerations: Present Decelerations: None Category 1 tracing UCs: Every 7 minutes, palpating mild A: Normal BPP Reactive NST P: -Continue taking vitamin and iron as previously prescribed -Reviewed labor precautions, kick counts, and pre-e precautions. Answered all patient questions and concerns. Patient verbalizes understanding. -Patient scheduled for IOL with [facility] [place] on 04/04. Patient encouraged to keep that appointment Other Interventions Other Interventions BPP Results: 04/25 FHR: 134 bpm SUMIT: 20.41cm vertex presentation placenta posterior with no evidence of previa or abruption Condition on Discharge: Stable Disposition: Home Discharge Instructions: Diet: Regular Activity: No Restrictions, As Tolerated Follow Up/Referral: IOL with [facility] [place] Medications: Unchanged from before Follow Up Care: Specialist: f/u in 1 week for IOL Discharge Statement: Patient was advised to return to the ER or call 911 if any headaches, dizziness, shortness of breath, chest pain, abdominal pain, bleeding, fevers, or worsening of medical condition. Patient was counseled about treatment plan, medications, possible side effects, patientverbalized understanding. All questions were answered to the best of my ability. This discharge took greater then 30 minutes in planning, reviewing documentation, counseling the patient, and discussing with other team members. Visit Coding OBGYN Date of Service: Mar 28, 2025 Billing Provider: RODOLFO EUBANKS CNM BI DEVELOPER Common Visit Codes: 86436-[id number] INP/OBS CARE (HIGH) BI DEVELOPER Procedure Codes: 49339-86- NON-STRESS TEST RODOLFO EUBANKS [facility] Mar 28, 2025 21:26
--- NOTE | 2025-03-28 21:53 | DVH ---
BIOPHYSICAL PROFILE HISTORY: decreased movement TECHNIQUE: Multiple transabdominal real-time grayscale sonographic images through the gravid uterus of the fetus with duplex Doppler color flow and M-mode spectral analysis FINDINGS: BIOPHYSICAL PROFILE: breathing score: 2 movement score: 2 tone score: 2 Quantitative SUMIT score: 2 (SUMIT: 20.41 Cm.) Total score: 8/8 The cervix obscured by Single live fetus in vertex presentation. heart rate 134 beats per minute. Posterior Grade 2 placenta without previa or abruption Single live fetus at 38 weeks 0 days Biophysical profile score 8/8 corresponding to an SHELIA of 04/11/2025. IMPRESSION: 1. Biophysical profile score: 8/8
== END 2025-03-28 22:01 | disposition home or self-care (01) ==
LOC: LDRP 20:06
PROVIDERS: ADMIT Obstetrics & Gynecology; ATTEND Obstetrics & Gynecology
DX: O36.8130 Decreased fetal movements, third trimester, not applicable or unspecified (principal); Z3A.38 38 weeks gestation of pregnancy; Z79.899 Other long term (current) drug therapy; Z98.890 Other specified postprocedural states
CPT/HCPCS: 59025; 76819; 81002; 94760; G0378